=== PATIENT | male | born 1950 | race Caucasian/White ===

== ENCOUNTER 2018-11-09 13:40 | Day surgery (SDC) | payer MEDICARE, OTHER ==
[~2018-11-09] VITALS: Ht 193 cm; Wt 95.5 kg
[~2018-11-09 13:40] MED LIST: ALBU90I INH; ALBU90OI6 INH; ALPR.5 PO; AMIO200; AMIO200 PO; AMLO5; AMLO5 PO; ASPI325; ASPI325 PO; ATEN25 PO; ATEN50; ATOR10; ATOR40TA; ATOR40TA PO; ATOR80 PO; BISA5EC; CEFU500 PO; CLOP75; CLOP75 PO; Cardizem CD 12120 MG PO; Coumadin5 MG PO; DIGO.125; DIGO.25; DOCU100; DYAZIDE PO; EYE VITAMIN-MI1 EACH PO; EZET10; FENO145 PO; FENO160; FENOFIBRATE145 MG PO; FURO20 PO; GENPREOPSU; LEVO750 PO; LISI20 PO; LO-DOSE ASPIRIN81 MG PO; Lovenox100 MG/1 M SC; METO25 PO; METO50 PO; METO50ER PO; MULTI VITAMIN1 EACH PO; MULVITMIND; MULVITMIND PO; NAPR500 PO; PANT40 PO; POTCHL10ER PO; PRED10 PO; PRED20; Preservision A1 EACH PO; SOTO80; SOTO80 PO; SUCR1SU PO; TRIHYD253A PO; WARF2.5; WARF5; WARF5 PO; Zantac150 MG PO; [UNRECOGNIZED DRUG - OTHER]; [UNRECOGNIZED DRUG - OTHER]; [UNRECOGNIZED DRUG - OTHER]
== END 2018-11-09 15:49 | disposition home or self-care (01) ==
LOC: ORSCSDS 13:40
PROVIDERS: Internal Medicine Gastroenterology
PROC: 0DBK8ZX Excision of Ascending Colon, Via Natural or Artificial Opening Endoscopic, Diagnostic (ICD-10-PCS; principal; 2018-11-09 15:00)
PROC: 0DB58ZX Excision of Esophagus, Via Natural or Artificial Opening Endoscopic, Diagnostic (ICD-10-PCS; principal; 2018-11-09 15:00)
DX: Z12.11 Encounter for screening for malignant neoplasm of colon (principal); Z86.010 Personal history of colon polyps; D12.2 Benign neoplasm of ascending colon; K57.30 Diverticulosis of large intestine without perforation or abscess without bleeding; K22.70 Barrett's esophagus without dysplasia; K44.9 Diaphragmatic hernia without obstruction or gangrene; I48.91 Unspecified atrial fibrillation; Z79.01 Long term (current) use of anticoagulants; J44.9 Chronic obstructive pulmonary disease, unspecified; Z79.899 Other long term (current) drug therapy; F17.210 Nicotine dependence, cigarettes, uncomplicated
CPT/HCPCS: 88305; J2250; J2704; J7120

== ENCOUNTER 2021-01-06 07:32 | Day surgery (SDC) | payer MEDICARE, OTHER ==
[~2021-01-06] VITALS: Ht 193 cm; Wt 95.0 kg
[~2021-01-06 07:32] MED LIST changes: +BISA5EC PO; +Crestor40 MG PO; +FAMO40 PO; +LOVAZA PO; +METAMUCIL POWD575 GM PO
--- NOTE | 2021-01-06 14:52 | NUR ---
DR RHOADES BY TO DISCUSS PLAN OF CARE WITH PT, PT DRESSED, IV DC'D INTACT, R GROIN VENOUS ACCESS SITE STABLE. R RADIAL TR REMOVED, DRESSING IN PLACE, R WRIST SPLINT PLACED, PT DC'D BY WC BY THIS RN WITH DRIVING PT HOME
== END 2021-01-06 14:00 | disposition home or self-care (01) ==
LOC: MHTC 07:32
PROC: B2111ZZ Fluoroscopy of Multiple Coronary Arteries using Low Osmolar Contrast (ICD-10-PCS; principal; 2021-01-06)
PROC: 4A023N8 Measurement of Cardiac Sampling and Pressure, Bilateral, Percutaneous Approach (ICD-10-PCS; principal; 2021-01-06)
DX: I25.10 Atherosclerotic heart disease of native coronary artery without angina pectoris (principal); I27.20 Pulmonary hypertension, unspecified; I10 Essential (primary) hypertension; E78.00 Pure hypercholesterolemia, unspecified; I73.9 Peripheral vascular disease, unspecified; E78.5 Hyperlipidemia, unspecified; I48.91 Unspecified atrial fibrillation; J44.9 Chronic obstructive pulmonary disease, unspecified; I35.0 Nonrheumatic aortic (valve) stenosis; Z79.899 Other long term (current) drug therapy; Z95.2 Presence of prosthetic heart valve; Z91.013 Allergy to seafood
CPT/HCPCS: 76937; 93451; 93458; 93460; 99152; 99153; C1760; C1769; C1887; C1894; J0360; J2250; J3010; J7030; Q9967

== ENCOUNTER 2021-09-27 17:12 | Emergency (ER) | payer MEDICARE, OTHER ==
[~2021-09-27] VITALS: Ht 193 cm; Wt 89.4 kg
[2021-09-27 17:45] LABS: BASOPHILS ABSOLUTE AUTO 0.08 K/mm3 (0.00-0.23); BASOPHILS PERCENT AUTO 1 % (0-2); EOSINOPHILS ABSOLUTE AUTO 0.12 K/mm3 (0.00-0.68); EOSINOPHILS PERCENT AUTO 1 % (0-6); Hematocrit 40.5 % (37.0-53.0); Hemoglobin 13.3 g/dL (13.5-17.5); IMMATURE GRAN ABSOLUTE AUTO 0.05 K/mm3 (0.00-0.10); IMMATURE GRAN PERCENT AUTO 1 % (0-1); LYMPHOCYTES ABSOLUTE AUTO 0.77 K/mm3 (0.84-5.20); LYMPHOCYTES PERCENT AUTO 8 % (21-46); MONOCYTES ABSOLUTE AUTO 1.01 K/mm3 (0.16-1.47); MONOCYTES PERCENT AUTO 10 % (4-13); Mean Corpuscular HGB 29.9 pg (26.0-34.0); Mean Corpuscular HGB Conc 32.8 g/dL (31.5-36.5); Mean Corpuscular Volume 91 fL (80-100); Mean Platelet Volume 11.7 fL (9.1-12.4); NEUTROPHILS ABSOLUTE AUTO 8.16 K/mm3 (1.96-9.15); NEUTROPHILS PERCENT AUTO 80 % (41-73); Platelet Count 201 K/mm3 (150-400); RDW Coefficient Variation 14.5 % (11.7-14.2); RDW Standard Deviation 45.4 fL (35.1-46.3); Red Blood Cell Count 4.45 M/mm3 (4.30-5.90); White Blood Cell Count 10.19 K/mm3 (4.00-11.30)
[2021-09-27 18:07] LABS: Albumin, Blood 3.6 g/dL (3.4-5.0); Albumin/Globulin Ratio 0.9 (0.8-1.8); Bilirubin, Total 4.1 mg/dL (0.1-1.0); Bun/Creatinine Ratio 26.3 (12.0-20.0); Creatinine, Blood 2.85 mg/dL (0.60-1.20); Globulin, Blood 3.8 g/dL (2.2-4.0); Potassium, Blood 5.3 mmol/L (3.5-5.5); Total Protein, Blood 7.4 g/dL (6.4-8.2)
[2021-09-27] MEDS ORDERED: AMIODARONE PO (18:14)
[2021-09-27] MEDS ORDERED: CARVEDILOL3.125 MG PO (18:14)
[2021-09-27 21:35] LABS: Influenza A, PCR NEGATIVE (NEGATIVE); Influenza B, PCR NEGATIVE (NEGATIVE); Resp Syncytial Virus, PCR NEGATIVE (NEGATIVE); SARS-Cov-2 (COVID-19) PCR, MMC NEGATIVE (NEGATIVE)
== END 2021-09-27 22:10 | disposition short-term general hospital (02) ==
LOC: ER 17:12
PROVIDERS: Physician Assistant; Student in an Organized Health Care Education/Training Program
DX: I11.0 Hypertensive heart disease with heart failure (principal); I50.23 Acute on chronic systolic (congestive) heart failure; N17.9 Acute kidney failure, unspecified; K72.00 Acute and subacute hepatic failure without coma; E87.1 Hypo-osmolality and hyponatremia; E86.1 Hypovolemia; R57.0 Cardiogenic shock; I48.91 Unspecified atrial fibrillation; Z20.822 Contact with and (suspected) exposure to COVID-19; Z87.891 Personal history of nicotine dependence; Z79.01 Long term (current) use of anticoagulants; Z79.899 Other long term (current) drug therapy; Z91.013 Allergy to seafood
CPT/HCPCS: 0241U; 36415; 71045; 76705; 80053; 83605; 83690; 83880; 84484; 85025; 93005; 93010; J1250; J1940; J7060

== ENCOUNTER 2022-03-04 06:21 | Day surgery (SDC) | payer MEDICARE, OTHER ==
[~2022-03-04] VITALS: Ht 193 cm; Wt 91.5 kg
[~2022-03-04 06:21] MED LIST changes: +AMIODARONE PO; +Amlodipine Bes2.5 MG PO; +Aspir 8181 MG PO; +CARVEDILOL3.125 MG PO; +OMEGA-3 FISH O1 EAC6
[2022-03-04] MEDS ORDERED: ELIQUIS2.5 MG PO (06:44)
[2022-03-04] MEDS ORDERED: POTA10T PO (06:44)
--- NOTE | 2022-03-04 06:56 | NUR ---
03/04/22 0656 Nicole Saldana 0629 [facility] [id number]
== END 2022-03-04 08:07 | disposition home or self-care (01) ==
LOC: ORSCSDS 06:21
PROVIDERS: Ophthalmology
PROC: 08RJ3JZ Replacement of Right Lens with Synthetic Substitute, Percutaneous Approach (ICD-10-PCS; principal; 2022-03-04 07:30)
DX: H25.13 Age-related nuclear cataract, bilateral (principal); H52.201 Unspecified astigmatism, right eye; Z99.81 Dependence on supplemental oxygen; I10 Essential (primary) hypertension; E78.00 Pure hypercholesterolemia, unspecified; Z79.899 Other long term (current) drug therapy; Z79.82 Long term (current) use of aspirin; F17.210 Nicotine dependence, cigarettes, uncomplicated; J44.9 Chronic obstructive pulmonary disease, unspecified
CPT/HCPCS: J2001; J2250; J3010; J3301; J7040; V2632

== ENCOUNTER 2024-02-08 12:11 | Emergency (ER) | payer MEDICARE, OTHER ==
[~2024-02-08] VITALS: Ht 193 cm; Wt 89.8 kg
[~2024-02-08 12:11] MED LIST changes: +Amiodarone HCl200 MG PO; +ELIQUIS2.5 MG PO; +POTA10T PO
[2024-02-08 12:32] LABS: BASOPHILS ABSOLUTE AUTO 0.05 K/mm3 (0.00-0.23); BASOPHILS PERCENT AUTO 1 % (0-2); EOSINOPHILS ABSOLUTE AUTO 0.12 K/mm3 (0.00-0.68); EOSINOPHILS PERCENT AUTO 2 % (0-6); Hematocrit 38.8 % (37.0-53.0); IMMATURE GRAN ABSOLUTE AUTO 0.03 K/mm3 (0.00-0.10); IMMATURE GRAN PERCENT AUTO 0 % (0-1); LYMPHOCYTES ABSOLUTE AUTO 0.89 K/mm3 (0.84-5.20); LYMPHOCYTES PERCENT AUTO 13 % (21-46); MONOCYTES PERCENT AUTO 9 % (4-13); Mean Corpuscular HGB 33.4 pg (26.0-34.0); Mean Corpuscular HGB Conc 33.5 g/dL (31.5-36.5); Mean Corpuscular Volume 100 fL (80-100); Mean Platelet Volume 10.5 fL (9.1-12.4); NEUTROPHILS ABSOLUTE AUTO 5.17 K/mm3 (1.96-9.15); NEUTROPHILS PERCENT AUTO 76 % (41-73); Platelet Count 141 K/mm3 (150-400); RDW Coefficient Variation 14.5 % (11.7-14.2); RDW Standard Deviation 51.8 fL (35.1-46.3); Red Blood Cell Count 3.89 M/mm3 (4.30-5.90); White Blood Cell Count 6.86 K/mm3 (4.00-11.30)
[2024-02-08] MEDS ORDERED: Diphth,Pertuss(Acell),Tet Vac 0.5 ML VIAL IM ONE (12:40)
[2024-02-08] MEDS ORDERED: Morphine Sulfate 4 MG/1 ML Injection IV ONE (12:40)
[2024-02-08] MEDS ORDERED: NS 250 ML IV SCH (12:40)
[2024-02-08] MEDS ORDERED: Acetaminophen 500 MG Tab PO ONE (12:40)
[2024-02-08 12:51] LABS: Albumin, Blood 3.7 g/dL (3.4-5.0); Albumin/Globulin Ratio 0.9 (0.8-1.8); Bilirubin, Total 1.6 mg/dL (0.1-1.0); Bun/Creatinine Ratio 19.5 (12.0-20.0); Calcium, Blood 9.2 mg/dL (8.5-10.1); Creatinine, Blood 1.18 mg/dL (0.60-1.20); Globulin, Blood 4.1 g/dL (2.2-4.0); Magnesium, Blood 1.9 mg/dL (1.6-2.4); Potassium, Blood 4.4 mmol/L (3.5-5.5); Total Protein, Blood 7.8 g/dL (6.4-8.2)
[2024-02-08] MEDS ORDERED: Furosemide 10 MG/ML 10ML Vial IV ONE (14:45)
[2024-02-08] MEDS ORDERED: Morphine Sulfat15 MG PO (14:47)
[2024-02-08] MEDS ORDERED: PERIDEX15 ML MM (14:51)
[2024-02-08 15:15] VITALS: BP 136/50
== END 2024-02-08 15:40 | disposition left against medical advice (07) ==
LOC: ER 12:11
PROVIDERS: Student in an Organized Health Care Education/Training Program
DX: S06.9X9A Unspecified intracranial injury with loss of consciousness of unspecified duration, initial encounter (principal); S01.112A Laceration without foreign body of left eyelid and periocular area, initial encounter; S01.511A Laceration without foreign body of lip, initial encounter; S80.02XA Contusion of left knee, initial encounter; I50.22 Chronic systolic (congestive) heart failure; I11.9 Hypertensive heart disease without heart failure; I48.91 Unspecified atrial fibrillation; I35.0 Nonrheumatic aortic (valve) stenosis; Z95.2 Presence of prosthetic heart valve; R79.89 Other specified abnormal findings of blood chemistry; E78.5 Hyperlipidemia, unspecified; W18.30XA Fall on same level, unspecified, initial encounter; Z87.891 Personal history of nicotine dependence; Z79.899 Other long term (current) drug therapy; Z91.013 Allergy to seafood
CPT/HCPCS: 12011; 29125; 70450; 71046; 72125; 73130; 73562-LT; 80053; 83735; 83880; 84484; 85025; 90471; 90715; 93005; 93010; 96374-59; 96375-59; 99285-25; A9270; J1940; J2270; J7030

== ENCOUNTER 2024-06-03 18:24 | Inpatient (IN) | payer MEDICARE, OTHER ==
[~2024-06-03] VITALS: Ht 182.9 cm; Wt 85.4 kg
[~2024-06-03 18:24] MED LIST changes: +Morphine Sulfat15 MG PO; +PERIDEX15 ML MM
[2024-06-03 19:08] LABS: BASOPHILS ABSOLUTE AUTO 0.06 K/mm3 (0.00-0.23); BASOPHILS PERCENT AUTO 1 % (0-2); EOSINOPHILS ABSOLUTE AUTO 0.08 K/mm3 (0.00-0.68); EOSINOPHILS PERCENT AUTO 1 % (0-6); Hematocrit 41.7 % (37.0-53.0); Hemoglobin 13.4 g/dL (13.5-17.5); IMMATURE GRAN ABSOLUTE AUTO 0.04 K/mm3 (0.00-0.10); IMMATURE GRAN PERCENT AUTO 1 % (0-1); LYMPHOCYTES ABSOLUTE AUTO 0.64 K/mm3 (0.84-5.20); LYMPHOCYTES PERCENT AUTO 8 % (21-46); MONOCYTES ABSOLUTE AUTO 0.64 K/mm3 (0.16-1.47); MONOCYTES PERCENT AUTO 8 % (4-13); Mean Corpuscular HGB 30.8 pg (26.0-34.0); Mean Corpuscular HGB Conc 32.1 g/dL (31.5-36.5); Mean Corpuscular Volume 96 fL (80-100); Mean Platelet Volume 10.3 fL (9.1-12.4); NEUTROPHILS ABSOLUTE AUTO 6.17 K/mm3 (1.96-9.15); NEUTROPHILS PERCENT AUTO 81 % (41-73); Platelet Count 162 K/mm3 (150-400); RDW Coefficient Variation 15.2 % (11.7-14.2); Red Blood Cell Count 4.35 M/mm3 (4.30-5.90); White Blood Cell Count 7.63 K/mm3 (4.00-11.30)
[2024-06-03 19:22] LABS: Albumin, Blood 3.2 g/dL (3.4-5.0); Albumin/Globulin Ratio 0.7 (0.8-1.8); Bilirubin, Total 1.7 mg/dL (0.1-1.0); Bun/Creatinine Ratio 17.9 (12.0-20.0); Calcium, Blood 8.7 mg/dL (8.5-10.1); Creatinine, Blood 1.23 mg/dL (0.60-1.20); Globulin, Blood 4.3 g/dL (2.2-4.0); Total Protein, Blood 7.5 g/dL (6.4-8.2)
[2024-06-03] MEDS ORDERED: Bumetanide 0.25 MG/ML 10ML Vial IV ONE (20:40)
[2024-06-03] MEDS ORDERED: Ondansetron HCl 2 MG / ML 2ML Vial IV PRN (21:35)
[2024-06-03] MEDS ORDERED: ALPRAZolam 0.5 MG Tab PO PRN (21:35)
[2024-06-03] MEDS ORDERED: METO25ER PO (21:58)
[2024-06-03] MEDS ORDERED: ASPI81CH PO (21:58)
[2024-06-03] MEDS ORDERED: Metoprolol Tartrate 25 MG Tab PO SCH (22:00)
[2024-06-03] MEDS ORDERED: GuaiFENesin 600 MG TabCR PO SCH (22:00)
[2024-06-03] MEDS ORDERED: Apixaban 5 MG Tab PO SCH (22:00)
[2024-06-03 23:00] VITALS: BP 112/63
--- NOTE | 2024-06-03 23:00 | NUR ---
ASSUMPTION OF CARE/TRANSFER TO PCU PT TRANSFERED TO PCU VIA ER GURNEY, PT TRANSFERED TO PCU BED VIA SBA. PT ALERT AND ORIENTED X4, PT ANSWERS QUESTIONS APPROPRIATELY, FOLLOWS DIRECTION WHEN PROMPTED AND IS ABLE TO MAKE HIS NEEDS KNOWN. PT MOVES EXTREMITIES EQUALLY BILATERALLY. HR 70'S PACED, PT DENIES CP/PRESSURE, MAP >65. PT ON 4LPM ON ARRIVAL TO UNIT, OXYGEN SATURATION >95%. ABDOMEN ROUND, PT STATES NOT NORMAL FOR HIM. BOWEL TONES ACTIVE THROUGHOUT. PT USES URINAL TO VOID. PIV IN PLACE TO LAC SL. PT BLE EDEMATOUS. BED IN LOWEST POSITION, CALL LIGHT WITHIN REACH, PT FAMILY AT THE BEDSDIE. CARE CONTINUES.
[2024-06-03] MEDS ORDERED: Albuterol 2.5 MG/3 ML VIAL INH PRN (23:25)
[2024-06-03] MEDS ORDERED: FLU VACC TS2024-25(6MOS UP)/PF 45 MCG/0.5 ML SYRINGE IM ONE (23:30)
[2024-06-03 23:49] VITALS: BP 138/72
--- NOTE | 2024-06-04 00:37 | NUR ---
PT UPDATE DR. FLYNN TO BEDSIDE TO DISCUSS CODE STATUS WITH PT. PT REIDERATES THAT HE WOULD LIKE TO BE A DNR, ORDERS RECEIVED, ORDER UPDATED. CARE CONTINUES.
[2024-06-04 03:47] VITALS: BP 118/68
[2024-06-04 04:11] LABS: Bun/Creatinine Ratio 20.7 (12.0-20.0); Calcium, Blood 9.1 mg/dL (8.5-10.1); Creatinine, Blood 1.16 mg/dL (0.60-1.20); Magnesium, Blood 2.4 mg/dL (1.6-2.4); Potassium, Blood 4.3 mmol/L (3.5-5.5)
--- NOTE | 2024-06-04 05:39 | NUR ---
SHIFT SUMMARY PT CONTINUES TO REST IN BED, SLEEPING BUT AROUSABLE. PT ANSWERS QUESTIONS APPROPRIATELY, FOLLOWS DIRECTION WHEN PROMPTED AND IS ABLE TO MAKE HIS NEEDS KNOWN. PT USES CALL LIGHT APPROPRATELY. PT MOVES EXTREMITIES EQUALLY BILATERALLY. PT AMBULATES IN THE ROOM WITH NURSE ASSIST FOR HELP WITH CORD MANAGEMENT. HR 70'S PACED, PT DENIES CP/PRESSURE THIS SHIFT, MAP >65. PT ON 4LPM VIA NC, OXYGEN SATURATION >94%. ABDOMEN ROUND, PT STATES NOT HIS NORMAL. BOWEL TONES ACTIVE THROUGHOUT. PT UP TO BEDSIDE TOILET TO VOID, ALSO USES URINAL AT THE SIDE OF THE BED. PIV IN PLACE TO LAC SL. BED IN LOWEST POSITION, CALL LIGHT WITHIN REACH, CARE CONTINUES.
[2024-06-04 08:07] VITALS: BP 127/64
[2024-06-04] MEDS ORDERED: Polyethylene Glycol 3350 17 gm PO PRN (11:05)
[2024-06-04 15:12] VITALS: BP 83/68
[2024-06-04] MEDS ORDERED: Benzonatate 100 MG Cap PO PRN (16:15)
[2024-06-04 16:20] VITALS: BP 116/68
--- NOTE | 2024-06-04 16:25 | NUR ---
SHIFT SUMMARY: PT ALERT AND ORIENTED X4, ABLE TO FOLLOW COMMANDS AND MAKE NEEDS KNOWN. STRENGTH EQUAL BILATERALLY. BP STABLE, HR PACED 70'S, AFEBRILE, SPO2 >92% ON 2L NC. PT RA AT BASELINE. LUNG SOUNDS DIM IN BASES, RESPIRATIONS EVEN AND UNLABORED AT REST. PT WITH NON PRODUCTIVE COUGH. ABD SOFT, MILDLY DISTENDED, BOWEL SOUNDS +. PT WITH +2 EDEMA IN BLE. PULSES STRONG AND EQUAL THROUGHOUT. PT DIURESING WELL, APPROX 900ML OF URINIARY OUTOUT. NO BM. ABLE TO USE URNIAL IND AT BEDSIDE. FAMILY AT BEDSIDE THIS AFTERNOON, UPDATED ON PT PLAN OF CARE. PT NOW MEDICAL WITH TELE STATUS. BED IN LOW, CALL LIGHT IN REACH, WILL REPORT TO ONCOMING RN.
[2024-06-04] MEDS ORDERED: Furosemide 10 MG/ML 4ML Vial IV SCH ×2 (18:00)
[2024-06-04 19:44] VITALS: BP 112/69
--- NOTE | 2024-06-04 20:31 | NUR ---
ASSUMPTION OF CARE AFTER RECEIVING REPORT FROM ASHLEY RN, THIS RN ASSUMED CARE AT APPROX 1915. PATIENT ALERT AND ORIENTED X4. COMMUNICATES NEEDS EFFECTIVELY. MOVES EXTREMITIES EQUALLY. PERRLA. TELEMETRY SHOWING PACED 70s. BP STABLE, SBP 110s. MAP >65. +2 EDEMA TO BLE. ON 2L VIA NC, SATs >90%. OCCASIONAL DRY, NONPRODUCTIVE COUGH. USES URINAL INDEPENDENTLY AT BEDSIDE. CALL LIGHT IN REACH.
[2024-06-04] MEDS ORDERED: Docusate Sodium/Senna 1 Tab PO SCH (21:00)
[2024-06-05 02:48] VITALS: BP 120/63
[2024-06-05 03:57] LABS: Hematocrit 39.4 % (37.0-53.0); Hemoglobin 13.1 g/dL (13.5-17.5); Mean Corpuscular HGB 31.2 pg (26.0-34.0); Mean Corpuscular HGB Conc 33.2 g/dL (31.5-36.5); Mean Corpuscular Volume 94 fL (80-100); Mean Platelet Volume 10.5 fL (9.1-12.4); Platelet Count 151 K/mm3 (150-400); RDW Standard Deviation 49.1 fL (35.1-46.3); White Blood Cell Count 8.53 K/mm3 (4.00-11.30)
[2024-06-05 04:19] LABS: Albumin, Blood 3.2 g/dL (3.4-5.0); Anion Gap 10 mmol/L (3-11); Blood Urea Nitrogen 26 mg/dL (8-24); Bun/Creatinine Ratio 21.8 (12.0-20.0); CO2, Blood 28 mmol/L (21-32); Calcium, Blood 8.8 mg/dL (8.5-10.1); Chloride, Blood 96 mmol/L (98-108); Creatinine, Blood 1.19 mg/dL (0.60-1.20); Glomerular Filtration Rate 63 (60-); Glucose, Blood 121 mg/dL (70-99); Magnesium, Blood 2.2 mg/dL (1.6-2.4); Phosphorus, Blood 3.3 mg/dL (2.5-4.9); Potassium, Blood 3.6 mmol/L (3.5-5.5); Sodium, Blood 130 mmol/L (136-145)
--- NOTE | 2024-06-05 05:27 | NUR ---
SHIFT SUMMARY NO ACUTE EVENTS SINCE ASSUMPTION OF CARE NOTE. PATIENT SLEPT OR RESTED QUIETLY THROUGHOUT NIGHT. AFEBRILE. DENIES PAIN. TELEMETRY SHOWING PACED 70s. BP STABLE, SBP 110s-120s. MAP >65. DENIES CHEST PAIN, PRESSURE. REMAINS ON 2L VIA NC, SATs >90%. BASELINE USE OF 2L WITH SLEEP. INDEPENDENT WITH ADLs. REPOSITIONS HIMSELF IN BED. CALL LIGHT IN REACH. WILL CONTINUE TO MONITOR AND REPORT TO ONCOMING RN.
[2024-06-05 08:04] VITALS: BP 138/60
[2024-06-05] MEDS ORDERED: Cholecalciferol 1000 Unit Tablet (=25MCG) PO SCH (09:00)
[2024-06-05] MEDS ORDERED: ALPR1 PO (09:39)
[2024-06-05] MEDS ORDERED: Metolazone 5 MG Tab PO ONE (10:20)
[2024-06-05] MEDS ORDERED: Norco 5-325 Ta1 EACH PO (10:43)
[2024-06-05] MEDS ORDERED: ELIQUIS5 M2 PO (10:44)
[2024-06-05] MEDS ORDERED: BISA5EC PO (10:45)
[2024-06-05] MEDS ORDERED: Bumetanide 0.25 MG/ML 10ML Vial IV ONE (10:45)
[2024-06-05] MEDS ORDERED: FAMO40 PO (10:46)
[2024-06-05] MEDS ORDERED: FURO80 PO (10:46)
[2024-06-05] MEDS ORDERED: LISI5 PO (10:47)
[2024-06-05] MEDS ORDERED: MULVITA PO (10:47)
[2024-06-05] MEDS ORDERED: POTCHL20ER PO (10:48)
[2024-06-05] MEDS ORDERED: PRESERVISION A1 EAC1 PO (10:49)
[2024-06-05] MEDS ORDERED: ROSUVASTATIN CA20 MG PO (10:50)
[2024-06-05 11:29] VITALS: BP 114/61
[2024-06-05 16:15] VITALS: BP 122/61
[2024-06-05] MEDS ORDERED: Bumetanide 0.25 MG/ML 10ML Vial IV SCH (18:00)
[2024-06-05] MEDS ORDERED: Potassium Chloride 20 MEQ TabCR PO ONE (18:00)
--- NOTE | 2024-06-05 18:12 | NUR ---
END OF SHIFT SUMMARY: PATIENT IS MEDICAL WITH TELE STATUS PT IS ALERT AND ORIENTED X 4 AND ACTIVE IN HIS CARE. IS SATTING >92% ON 2 LITERS VIA NASAL CANNULA WHICH IS HIS BASELINE. IS ON TELE SHOWING PACED BEAT WITH RATE IN 70'S. CARDIOLOGY CONSULT WAS CALLED TODAY AND MEDICATIONS WERE CHANGED. PATIENT IS A STAND BY ASSIST TO MANAGE LINES/CHORDS. A MALEPUREWICK WAS PLACED TODAY PATIENTS BUMEX WAS INCREASED AND NEEDED TO USE THE URINAL MORE OFTEN. PT REPORTED HIS HANDS CRAMPING AND SLIGHT TREMORS, A CALL WAS PLACED TO DOCTOR MOCK AND HE ORDERED POTASSIUM TO BE GIVEN AND SOME MORNING LABS WERE ADDED. PATIENTS FAMILY WAS IN ROOM THROUGHOUT SHIFT AND WAS ABLE TO REST TODAY. WILL REPORT TO ONCOMING TALEND ETL DEVELOPER RN.
[2024-06-05 19:20] VITALS: BP 111/62
--- NOTE | 2024-06-05 21:43 | NUR ---
ASSUMPTION OF CARE AFTER RECEIVING REPORT FROM ADRIANNA, THIS RN ASSUMED CARE AT APPROX 1915. PATIENT ALERT AND ORIENTED X4. SLEEPING, EASILY AROUSABLE WITH VERBAL STIMULI. INDEPENDENT WITH ADLs. MOVES ALL EXTREMITIES EQUALLY. SBA FOR LINE, DEVICE MANAGEMENT WITH MOBILITY. TELEMETRY SHOWING PACED 70s. BP STABLE, SBP 110s. MAP >65. +2 EDEMA TO BLE, ABDOMEN. ON BASELINE 2L VIA NC, SATs >90%. RR EVEN, UNLABORED. MALE PW IN PLACE FOR URGENCY, ACCURATE I/Os WITH DIURESIS. CALL LIGHT IN REACH.
[2024-06-06 02:09] VITALS: BP 115/65
[2024-06-06 04:07] LABS: Hematocrit 36.8 % (37.0-53.0); Hemoglobin 12.9 g/dL (13.5-17.5); Mean Corpuscular HGB 32.6 pg (26.0-34.0); Mean Corpuscular HGB Conc 35.1 g/dL (31.5-36.5); Mean Corpuscular Volume 93 fL (80-100); Mean Platelet Volume 10.5 fL (9.1-12.4); Platelet Count 149 K/mm3 (150-400); RDW Coefficient Variation 15.8 % (11.7-14.2); RDW Standard Deviation 49.1 fL (35.1-46.3); Red Blood Cell Count 3.96 M/mm3 (4.30-5.90); White Blood Cell Count 9.12 K/mm3 (4.00-11.30)
[2024-06-06 04:25] LABS: Albumin, Blood 3.1 g/dL (3.4-5.0); Anion Gap 12 mmol/L (3-11); Blood Urea Nitrogen 24 mg/dL (8-24); Bun/Creatinine Ratio 22.2 (12.0-20.0); CO2, Blood 33 mmol/L (21-32); Chloride, Blood 88 mmol/L (98-108); Creatinine, Blood 1.08 mg/dL (0.60-1.20); Glomerular Filtration Rate 71 (60-); Glucose, Blood 122 mg/dL (70-99); Magnesium, Blood 2.1 mg/dL (1.6-2.4); Phosphorus, Blood 2.8 mg/dL (2.5-4.9); Potassium, Blood 2.5 mmol/L (3.5-5.5); Sodium, Blood 130 mmol/L (136-145)
[2024-06-06] MEDS ORDERED: Potassium Chloride 20 MEQ TabCR PO ONE ×2 (04:35→16:00)
[2024-06-06] MEDS ORDERED: Potassium Chl 20MEQ/Water100ML 100 ML IV SCH (04:35)
[2024-06-06] MEDS ORDERED: NS 250 ML IV PRN (04:35)
--- NOTE | 2024-06-06 04:35 | NUR ---
PATIENTs POTASSIUM 2.5 THIS MORNING. MD SUNSHINE ROUNDING IN UNIT. RECEIVED ORDER FOR 40 MEQ PO POTASSIUM CHLORIDE AND 40 MEQ IV POTASSIUM CHLORIDE. WILL ADMINISTER PER EMAR.
--- NOTE | 2024-06-06 05:58 | NUR ---
SHIFT SUMMARY NO ACUTE EVENTS SINCE ASSUMPTION OF CARE NOTE. PATIENT SLEPT OR RESTED QUIETLY THROUGHOUT. EASILY AROUSABLE WITH VERBAL STIMULI. TELEMETRY SHOWING PACED 70s. BP STABLE, SBP 110s-120s. MAP >65. DENIES CHEST PAIN, PRESSURE. DIURESING WELL THROUGHOUT NIGHT - MALE PUREWICK REMAINS IN PLACE. ON 2-4L VIA NC, SATs >90%. REPOSITIONING HIMSELF INDEPENDENTLY IN BED. CALL LIGHT IN REACH. IV POTASSIUM CHLORIDE INFUSING PER EMAR. WILL CONTINUE TO MONITOR AND REPORT TO ONCOMING RN.
--- NOTE | 2024-06-06 07:26 | NUR ---
ASSUMING CARE ASSUMING CARE AT 0715, BEDSIDE SHIFT REPORT WAS DONE. PATIENT RECIVING POTASSIUM IV, SITE ASSESSED AND WITHIN NORMAL LIMIT, FREE OF REDNESS OR SWELLING. PATIENT IS LAYING IN BED WITH THE CALL IN REACH.
[2024-06-06 07:49] VITALS: BP 113/60
[2024-06-06] MEDS ORDERED: HYDROcodone 5-APAP 325 TAB PO PRN (08:00)
[2024-06-06] MEDS ORDERED: Metoprolol Tartrate 25 MG Tab PO SCH (09:00)
[2024-06-06 12:22] LABS: Bun/Creatinine Ratio 22.3 (12.0-20.0); Calcium, Blood 9.5 mg/dL (8.5-10.1); Creatinine, Blood 1.03 mg/dL (0.60-1.20); Potassium, Blood 3.1 mmol/L (3.5-5.5)
[2024-06-06] MEDS ORDERED: Metolazone 2.5 MG Tab PO ONE (15:30)
[2024-06-06] MEDS ORDERED: Bumetanide 0.25 MG/ML 10ML Vial IV ONE (16:00)
[2024-06-06 16:18] VITALS: BP 116/61
--- NOTE | 2024-06-06 17:50 | NUR ---
SHIFT SUMMARY PATIENT IS A+O X4, MOVES ALL EXTERMITIES IN BED, ABLE TO REPOSTION SELF. MAKES NEEDS KNOWN. SBA ASSIT TO BATHROOM FOR BOWEL MOVEMENT. USING URINAL IN BED INDEPENTLY. PATIENT IS ON 2 LITERS NC SATURATING ABOVE 95%. DR. MEDRANO ROUNDED ON PATIENT WANTS TO CONTINUE TO DIURESING PATIENT, REPEAT BNP ORDERED FOR TOMORROW AM. CALL LIGHT IN REACH OF PATIENT, WILL CONTINUE TO TREAT UNTIL CHNAGE OF SHIFT.
[2024-06-06 19:44] VITALS: BP 111/52
--- NOTE | 2024-06-06 21:43 | NUR ---
ASSUMPTION OF CARE AFTER RECEIVING REPORT FROM ROSE RN, THIS RN ASSUMED CARE AT APPROX 1915. PATIENT ALERT AND ORIENTED X4. COMMUNICATING NEEDS EFFECTIVELY. AFEBRILE. RECEIVED HOME DOSE OF NORCO FOR CHRONIC LOWER BACK PAIN PRIOR TO ASSUMPTION OF CARE - REPORTS IMPROVEMENT IN PAIN 08/11. TELEMETRY SHOWING PACED 70s. BP SOFT, SBP 110s. MAP >65. DENIES CHEST PAIN, PRESSURE. EDEMA TO BLE, ABD IMPROVING WITH DIURESIS - +1 TO BLE, ABD. ON BASELINE 2L VIA NC, SATs >90%. RR EVEN, UNLABORED. OCCASIONAL DRY, HACKING COUGH. HOME DOSE OF XANAX ADMINISTERED PER EMAR AT PATIENT REQUEST TO HELP WITH SLEEP. PATIENT INDEPENDENT WITH ADLs. SBA WITH MOBILITY PRN. CALL LIGHT IN REACH.
[2024-06-07] VITALS (8 sets, daily range): BP systolic 113–137; BP diastolic 44–62
[2024-06-07 04:06] LABS: BASOPHILS ABSOLUTE AUTO 0.04 K/mm3 (0.00-0.23); BASOPHILS PERCENT AUTO 1 % (0-2); EOSINOPHILS ABSOLUTE AUTO 0.09 K/mm3 (0.00-0.68); EOSINOPHILS PERCENT AUTO 1 % (0-6); Hematocrit 41.3 % (37.0-53.0); Hemoglobin 13.9 g/dL (13.5-17.5); IMMATURE GRAN ABSOLUTE AUTO 0.04 K/mm3 (0.00-0.10); IMMATURE GRAN PERCENT AUTO 1 % (0-1); LYMPHOCYTES ABSOLUTE AUTO 0.65 K/mm3 (0.84-5.20); LYMPHOCYTES PERCENT AUTO 9 % (21-46); MONOCYTES ABSOLUTE AUTO 0.59 K/mm3 (0.16-1.47); MONOCYTES PERCENT AUTO 8 % (4-13); Mean Corpuscular HGB 31.7 pg (26.0-34.0); Mean Corpuscular HGB Conc 33.7 g/dL (31.5-36.5); Mean Corpuscular Volume 94 fL (80-100); NEUTROPHILS ABSOLUTE AUTO 6.21 K/mm3 (1.96-9.15); NEUTROPHILS PERCENT AUTO 82 % (41-73); Platelet Count 158 K/mm3 (150-400); RDW Coefficient Variation 15.9 % (11.7-14.2); RDW Standard Deviation 49.6 fL (35.1-46.3); Red Blood Cell Count 4.39 M/mm3 (4.30-5.90); White Blood Cell Count 7.62 K/mm3 (4.00-11.30)
[2024-06-07 04:23] LABS: Magnesium, Blood 1.9 mg/dL (1.6-2.4)
[2024-06-07 04:24] LABS: Albumin, Blood 3.3 g/dL (3.4-5.0); Albumin/Globulin Ratio 0.8 (0.8-1.8); Bilirubin, Total 2.9 mg/dL (0.1-1.0); Bun/Creatinine Ratio 25.9 (12.0-20.0); Calcium, Blood 9.7 mg/dL (8.5-10.1); Creatinine, Blood 1.08 mg/dL (0.60-1.20); Globulin, Blood 4.4 g/dL (2.2-4.0); Phosphorus, Blood 3.3 mg/dL (2.5-4.9); Potassium, Blood 2.9 mmol/L (3.5-5.5); Total Protein, Blood 7.7 g/dL (6.4-8.2)
[2024-06-07] MEDS ORDERED: Potassium Chloride 10 Meq Tablet SA PO ONE (05:00)
[2024-06-07] MEDS ORDERED: Potassium Chl 20MEQ/Water100ML 100 ML IV SCH (05:05)
--- NOTE | 2024-06-07 05:36 | NUR ---
SHIFT SUMMARY NO ACUTE EVENTS SINCE ASSUMPTION OF CARE NOTE. PATIENT SLEPT OR RESTED QUIETLY THROUGHOUT NIGHT, EASILY AROUSABLE WITH VERBAL STIMULI. MANAGING CHRONIC LOWER BACK PAIN PER EMAR. TELEMETRY SHOWING PACED 70s. BP STABLE, SBP 110s-130s. MAP >65. DENIES CHEST PAIN, PRESSURE. POTASSIUM 2.9 THIS MORNING - MD SUNSHINE CONTACTED. ORDERED PO 40 MEQ POTASSIUM ADMINISTERED PER EMAR. FIRST BAG OF 20 MEQ IV POTASSIUM INFUSING. REMAINS ON 2L VIA NC, SATs >90%. INDEPENDENT WITH ADLs. URINAL AT BEDSIDE - VOIDING. NO BM THIS SHIFT. CALL LIGHT IN REACH. WILL CONTINUE TO MONITOR AND REPORT TO ONCOMING RN.
[2024-06-07] MEDS ORDERED: Metolazone 5 MG Tab PO ONE (08:10)
[2024-06-07] MEDS ORDERED: Potassium Chloride 20 MEQ TabCR PO ONE (08:10)
[2024-06-07] MEDS ORDERED: Bumetanide 0.25 MG/ML 10ML Vial IV ONE (08:10)
[2024-06-07] MEDS ORDERED: Metoprolol Succinate 25 MG TABCR PO SCH (09:00)
[2024-06-07] MEDS ORDERED: Aspirin 81 MG Chew PO SCH (09:00)
[2024-06-07 11:24] LABS: Calcium, Blood 9.3 mg/dL (8.5-10.1); Creatinine, Blood 1.04 mg/dL (0.60-1.20)
--- NOTE | 2024-06-07 11:39 | NUR ---
PT'S AT THE BEDSIDE AND UPDATES ON CARE.
--- NOTE | 2024-06-07 18:05 | NUR ---
SHIFT SUMMARY THE PT IS A&OX4, CALLS APPROPRAITELY, AND MAKES HIS NEEDS KNOW. HE IS A 1P SBA FOR LINE MANAGEMENT. HE HAS BEEN ON HIS BL 2L NC W/ SP02 >90%. HE HAD ONE EPISODE OF SOB WHEN HE WAS C/O BACK PAIN. NO CHANGES IN LUNG SOUNDS OR SATURATION. AFTER PAIN MEDICATIONS AND A BREATHING TREATMENT THE PT STATED THE SOB RESOLVED. ON TELE THE PT HAS BEEN VPACED 60'S-70'S. BP SABLE. HE HAS BEEN USING THE URINAL IND IN THE BED AND HAS BEEN CALLING APPROPRAITELY. HIS CAME TO BEDSIDE AND HAS BEEN UPDATED ON CARE. SEE NOTES FOR ANY UPDATES.
--- NOTE | 2024-06-07 21:09 | NUR ---
ASSUMPTION OF CARE NOTE. PT AOX4, PLEASANT, COOPERATIVE WITH CARE, CALLS APPROPRIATELY, ABLE TO MAKE NEEDS KNOWN. VITALS STABLE. 2100 MEDICATIONS ADMINISTERED SLIGHTLY EARLY PER REQUEST SO THAT HE CAN SLEEP. PAIN WELL MANAGED VIA EMAR. INDEPENDENT WITH URINAL, STANDBY ASSIST TO BSC. CALLS APPROPRIATELY FOR ASSISTANCE. RUNNING VPACED ON TELE. MAINTAINING ADEQUATE SATURATION ON 2 L O2 VIA NC WHICH IS PT BASELINE PER REPORT. BED LOCKED IN LOWEST POSITION. CALL LIGHT LEFT WITHIN REACH. CONTINUING TO MONITOR.
[2024-06-08] VITALS (9 sets, daily range): BP systolic 88–112; BP diastolic 45–61
--- NOTE | 2024-06-08 01:23 | NUR ---
0000 NOTE. PT SLEEPING AT TIME OF ENTERING ROOM FOR VITALS. REMAINS AOX4, PLEASANT, COOPERATIVE. MAINTAINING ADEQUATE SATURATION ON 2 L O2 VIA NC. EMPTIED URINAL. PT DENIES FURTHER NEEDS. CONTINUING TO MONITOR.
[2024-06-08 04:21] LABS: Hematocrit 43.6 % (37.0-53.0); Hemoglobin 14.8 g/dL (13.5-17.5)
--- NOTE | 2024-06-08 04:49 | NUR ---
shift summary. shift has been unremarkable. pt condition unchanged throughout shift, see previous notes for details. bed locked in lowest position. call light left within reach. continuing to monitor.
[2024-06-08 05:32] LABS: Bun/Creatinine Ratio 28.2 (12.0-20.0); Calcium, Blood 9.8 mg/dL (8.5-10.1); Creatinine, Blood 1.03 mg/dL (0.60-1.20); Magnesium, Blood 1.8 mg/dL (1.6-2.4); Phosphorus, Blood 3.6 mg/dL (2.5-4.9); Potassium, Blood 3.2 mmol/L (3.5-5.5)
[2024-06-08] MEDS ORDERED: Potassium Chloride 20 MEQ TabCR PO SCH ×2 (08:11→08:30)
[2024-06-08] MEDS ORDERED: Metolazone 5 MG Tab PO SCH (08:30)
[2024-06-08] MEDS ORDERED: Bumetanide 1 MG Tab PO SCH (09:00)
[2024-06-08] MEDS ORDERED: Bumetanide 0.25 MG/ML 4ML ViaL IV SCH (09:00)
[2024-06-08] MEDS ORDERED: Acetaminophen 325 MG TABLET PO PRN (11:15)
[2024-06-08 13:19] LABS: Bun/Creatinine Ratio 33.4 (12.0-20.0); Calcium, Blood 9.8 mg/dL (8.5-10.1); Creatinine, Blood 0.99 mg/dL (0.60-1.20); Potassium, Blood 2.7 mmol/L (3.5-5.5)
--- NOTE | 2024-06-08 14:52 | NUR ---
I CALLED DR. TRUONG ABOUT THE PT'S 1158 LABS: K 2.7. SHE STATED SHE IS WORKING ON IT RIGHT NOW. SEE NOTES FOR ANY UPDATES.
[2024-06-08] MEDS ORDERED: Potassium Chloride 20 MEQ TabCR PO ONE ×2 (15:00→22:50)
[2024-06-08] MEDS ORDERED: Potassium Chl 10MEQ/Water100ML 100 ML IV ONE (15:00)
--- NOTE | 2024-06-08 15:19 | NUR ---
DR. TRUONG CALLED ABOUT SYMPTOMATIC HYPOTENSION. SHE IS GOING TO BE PUTTING IN SOME FLUIDS. ALSO, THE PT STATED IT IS OKAY TO GIVE THE 1700 DOSE OF KCL W/ NOW. SEE NOTES FOR UPDATES .
[2024-06-08] MEDS ORDERED: NS 250 ML IV SCH (15:25)
--- NOTE | 2024-06-08 16:58 | NUR ---
SHIFT SUMMARY PT IS A&OX4, CALLS APPROPRIATELY, AND CAN MAKE HIS NEEDS KNOWN. HE HAD A SOFT BLOOD PRESSURE THIS LATE AFTERNOON AND DR. TRUONG ORDERED 250CC'S NS @ 75ML/HR. HE WAS CHANGED BACK TO PCU STATUS FOR CLOSER OBSERVATION. WHEN THE PT'S BP WAS SOFT HE DID BECOME LIGHT HEADED AND DIZZY WHEN SITTING UP IN BED. SINCE STARTING THE FLUIDS HIS BP HAS IMPROVED. ON TELE THE PT HAS BEEN VPACED 70'S. HE DENIES ANY ANGINA OR CHEST PRESSURE. HE HAS BEEN USING THE URINAL IND IN THE ROOM, AND HAS NOT HAD A BOWEL MOVMENT TODAY. HIS CAME TO BEDSIDE AND HAS BEEN UPDATES ON CARE. SEE NOTES FOR ANY UPDATES.
--- NOTE | 2024-06-08 18:00 | NUR ---
ABOUT 1740 THE PT STARTED C/O SOB ON 2L NC. HIS SP02 WAS IN THE 80'S AND TOUCHED DOWN TO 79%. HE OXYGEN WAS TURNED UP 6L NC AND HE WAS COACHED WITH DEEP BREATHING. WHEN REASSESSING HIS LUNG SOUND HE HAD COARSE CRACKLES IN HIS LEFT LUNG. HE WAS ABLE TO RECOVER AND IS BACK ON 2LNC. RT GIVING THE PT A BREATHING TREATMENT. THE PT IS CURRENTLY RECIEVING A SLOW 250CC BOLUS D/T HYPOTENSION. DR. TRUONG WAS CALLED AND UPDATED. SHE ORDERED A BNP AND STAT CHEST XRAY. LAB IN THE ROOM AT THIS TIME. 1804. SEE NOTES FOR UPDATES.
--- NOTE | 2024-06-08 18:26 | NUR ---
PT HAD A SIX BEAT RUN OF VTACH, PT ASYMPTOMATIC. THIS WAS DISCUSSED WITH PAYROLL SUPERVISOR GABE.
[2024-06-08 21:00] LABS: Albumin, Blood 3.1 g/dL (3.4-5.0); Anion Gap 9 mmol/L (3-11); Blood Urea Nitrogen 38 mg/dL (8-24); Bun/Creatinine Ratio 32.8 (12.0-20.0); CO2, Blood 41 mmol/L (21-32); Calcium, Blood 9.1 mg/dL (8.5-10.1); Chloride, Blood 79 mmol/L (98-108); Creatinine, Blood 1.16 mg/dL (0.60-1.20); Glomerular Filtration Rate 65 (60-); Glucose, Blood 196 mg/dL (70-99); Phosphorus, Blood 2.8 mg/dL (2.5-4.9); Potassium, Blood 3.1 mmol/L (3.5-5.5); Sodium, Blood 126 mmol/L (136-145)
--- NOTE | 2024-06-09 01:09 | NUR ---
LATE NOTE. PT POTASSIUM WAS LOW ON LABS THIS EVENING. SPOKE WITH DR. SANTANA WHO ORDERED ORAL REPLACEMENT. ADMINISTERED. WAS SLEEPING AT TIME OF ENTERING ROOM FOR 0000 VITALS. NO PAIN REPORTED. BP REMAINS SOFT BUT STABLE. NO EPISODES OF VTACH THUS FAR THIS SHIFT. BED LOCKED IN LOWEST POSITION. CALL LIGHT LEFT WITHIN REACH. CONTINUING TO MONITOR.
[2024-06-09 02:09] VITALS: BP 112/57
[2024-06-09 03:59] VITALS: BP 113/61
--- NOTE | 2024-06-09 04:24 | NUR ---
SHIFT SUMMARY. SHIFT HAS BEEN UNREMARKABLE. PT AOX4, PLEASANT, COOPERATIVE, ABLE TO MAKE NEEDS KNOWN. HAS BEEN ABLE TO REST COMFORTABLY THROUGHOUT MOST OF SHIFT. PAIN ADEQUATELY MANAGED VIA EMAR. BP HAS BEEN SOFT AT TIMES BUT HAS BEEN MOSTLY STABLE, MOST RECENT MAP WAS 77 WITH SBP OF 113. CONTINUES TO RUN V PACED ON TELE. CONTINUES TO MAINTAIN ADEQUATE SATURATION ON 2 L O2 VIA NC. CONTINUES TO BE INDEPENDENT WITH URINAL AND REQUESTS ASSISTANCE APPROPRIATELY FOR HELP. AWAITING LAB RESULTS TO COME BACK FROM MORNING LABS POST ORAL POTASSIUM REPLACEMENT LAST NIGHT. SHIFT OTHERWISE UNREMARKABLE. BED LOCKED IN LOWEST POSITION. CALL LIGHT LEFT WITHIN REACH. CONTINUING TO MONITOR.
[2024-06-09 04:25] LABS: Hematocrit 40.8 % (37.0-53.0); Hemoglobin 13.7 g/dL (13.5-17.5)
[2024-06-09 04:54] LABS: Bun/Creatinine Ratio 36.4 (12.0-20.0); Calcium, Blood 9.6 mg/dL (8.5-10.1); Creatinine, Blood 1.07 mg/dL (0.60-1.20); Potassium, Blood 3.2 mmol/L (3.5-5.5)
[2024-06-09 07:37] VITALS: BP 118/44
[2024-06-09] MEDS ORDERED: Potassium Chloride 20 MEQ TabCR PO ONE (09:00)
--- NOTE | 2024-06-09 09:09 | NUR ---
am note this rn assumed care at 0700. vital signs stable. spo2 >90% on 2l nc which is patient baseline. tele sinus rhythm. patient is alert and oriented x4. neuro is intact. patient is able to make needs known and uses call light appropriately. see shift assessment for further detials. md ck in to see patient and encouraged movement and possible discharge today. patient agreed. will wait to see md meza when md rounds. plan reamins up to date
--- NOTE | 2024-06-09 09:36 | NUR ---
UPDATE md meza in to see patient while patient sitting in the hallway from walk. plan for patient to go home this afternoon. patient agrees to this plan.
[2024-06-09 11:47] VITALS: BP 110/60
[2024-06-09] MEDS ORDERED: BUME2 PO (12:08)
[2024-06-09] MEDS ORDERED: JARDIANCE10 MG PO (12:09)
--- NOTE | 2024-06-09 14:07 | NUR ---
discharge this rn went over discharge education, follows, and medication changes with the patient and patients . patient verbalized understanding of education, follow ups and medication changes. meds faxed to [facility]. patient left with all belongings and in no distress.
== END 2024-06-09 13:42 | disposition home or self-care (01) | DRG 291 ==
LOC: ER 18:24 → PCU 21:31
PROVIDERS: Emergency Medicine; Family Medicine; Hospitalist; Internal Medicine; Nurse Practitioner Acute Care; ADMIT Internal Medicine
DX: I11.0 Hypertensive heart disease with heart failure (principal); I50.43 Acute on chronic combined systolic (congestive) and diastolic (congestive) heart failure; J96.21 Acute and chronic respiratory failure with hypoxia; E87.1 Hypo-osmolality and hyponatremia; I48.92 Unspecified atrial flutter; Z66 Do not resuscitate; I25.10 Atherosclerotic heart disease of native coronary artery without angina pectoris; I48.91 Unspecified atrial fibrillation; I73.9 Peripheral vascular disease, unspecified; E66.01 Morbid (severe) obesity due to excess calories; E78.5 Hyperlipidemia, unspecified; J44.9 Chronic obstructive pulmonary disease, unspecified; F17.210 Nicotine dependence, cigarettes, uncomplicated; F10.10 Alcohol abuse, uncomplicated; E86.1 Hypovolemia; I42.0 Dilated cardiomyopathy; E87.6 Hypokalemia; I27.29 Other secondary pulmonary hypertension; K22.70 Barrett's esophagus without dysplasia; I70.8 Atherosclerosis of other arteries; I87.2 Venous insufficiency (chronic) (peripheral); D64.9 Anemia, unspecified; I35.0 Nonrheumatic aortic (valve) stenosis; Z79.01 Long term (current) use of anticoagulants; Z98.890 Other specified postprocedural states; Z95.0 Presence of cardiac pacemaker; Z95.820 Peripheral vascular angioplasty status with implants and grafts; Z95.4 Presence of other heart-valve replacement; Z91.013 Allergy to seafood; Z79.82 Long term (current) use of aspirin; Z79.899 Other long term (current) drug therapy; Z99.81 Dependence on supplemental oxygen; Z95.828 Presence of other vascular implants and grafts; Z28.21 Immunization not carried out because of patient refusal; Z86.79 Personal history of other diseases of the circulatory system; Z68.28 Body mass index [BMI] 28.0-28.9, adult; Z71.6 Tobacco abuse counseling; Z79.811 Long term (current) use of aromatase inhibitors; Z79.891 Long term (current) use of opiate analgesic; Z87.19 Personal history of other diseases of the digestive system
CPT/HCPCS: 36415; 71045; 76705; 80048; 80053; 80069; 83735; 83880; 84100; 84484; 85014; 85018; 85025; 85027; 93005; 93010; 94640; 94664; 94760; 94762; 96374; 99285-25; A9270; C8929; J1940; J3480; J7050; Q9957

== ENCOUNTER 2024-06-23 16:28 | Inpatient (IN) | payer MEDICARE ==
[~2024-06-23] VITALS: Ht 193 cm; Wt 83.8 kg
[~2024-06-23 16:28] MED LIST changes: +ALPR1 PO; +ASPI81CH PO; +BUME2 PO; +ELIQUIS5 M2 PO; +FURO80 PO; +JARDIANCE10 MG PO; +LISI5 PO; +METO25ER PO; +MULVITA PO; +Norco 5-325 Ta1 EACH PO; +POTCHL20ER PO; +PRESERVISION A1 EAC1 PO; +ROSUVASTATIN CA20 MG PO
[2024-06-23 16:58] LABS: BASOPHILS ABSOLUTE AUTO 0.05 K/mm3 (0.00-0.23); BASOPHILS PERCENT AUTO 1 % (0-2); EOSINOPHILS ABSOLUTE AUTO 0.06 K/mm3 (0.00-0.68); EOSINOPHILS PERCENT AUTO 1 % (0-6); Hemoglobin 11.8 g/dL (13.5-17.5); IMMATURE GRAN ABSOLUTE AUTO 0.07 K/mm3 (0.00-0.10); IMMATURE GRAN PERCENT AUTO 1 % (0-1); LYMPHOCYTES ABSOLUTE AUTO 0.71 K/mm3 (0.84-5.20); LYMPHOCYTES PERCENT AUTO 9 % (21-46); MONOCYTES ABSOLUTE AUTO 0.86 K/mm3 (0.16-1.47); MONOCYTES PERCENT AUTO 11 % (4-13); Mean Corpuscular HGB 30.9 pg (26.0-34.0); Mean Corpuscular HGB Conc 33.7 g/dL (31.5-36.5); Mean Corpuscular Volume 92 fL (80-100); Mean Platelet Volume 10.6 fL (9.1-12.4); NEUTROPHILS ABSOLUTE AUTO 6.06 K/mm3 (1.96-9.15); NEUTROPHILS PERCENT AUTO 78 % (41-73); Platelet Count 196 K/mm3 (150-400); RDW Standard Deviation 51.8 fL (35.1-46.3); Red Blood Cell Count 3.82 M/mm3 (4.30-5.90); White Blood Cell Count 7.81 K/mm3 (4.00-11.30)
[2024-06-23] MEDS ORDERED: NS 500 ML IV SCH ×2 (17:00→21:43)
[2024-06-23 17:41] LABS: Albumin, Blood 3.3 g/dL (3.4-5.0); Albumin/Globulin Ratio 0.7 (0.8-1.8); Bun/Creatinine Ratio 35.4 (12.0-20.0); Calcium, Blood 9.2 mg/dL (8.5-10.1); Creatinine, Blood 1.64 mg/dL (0.60-1.20); Globulin, Blood 4.5 g/dL (2.2-4.0); Total Protein, Blood 7.8 g/dL (6.4-8.2)
[2024-06-23 17:44] LABS: Influenza A, PCR NEGATIVE (NEGATIVE); Influenza B, PCR NEGATIVE (NEGATIVE); Resp Syncytial Virus, PCR NEGATIVE (NEGATIVE); SARS-Cov-2 (COVID-19) PCR, MMC NEGATIVE (NEGATIVE)
[2024-06-23 17:51] LABS: Magnesium, Blood 2.5 mg/dL (1.6-2.4); Phosphorus, Blood 3.8 mg/dL (2.5-4.9)
[2024-06-23 18:47] LABS: Source, Urine Clean Catch
[2024-06-23 18:54] LABS: Appearance, Urine Clear (Clear); Bilirubin, Urine Neg (Neg); Blood, Urine Neg (Neg); Color, Urine Yellow (P-Yellow); Glucose Qualitative, Urine 3+ (Neg); Ketones, Urine Neg (Neg); Leukocyte Esterase, Urine Neg (Neg); Nitrite, Urine Neg (Neg); Protein, Urine Neg (Neg); Urobilinogen, Urine NORM (Normal)
[2024-06-23] MEDS ORDERED: NS 250 ML IV SCH (18:55)
[2024-06-23] MEDS ORDERED: Apixaban 5 MG Tab PO SCH (21:44)
[2024-06-23] MEDS ORDERED: Rosuvastatin Calcium 10 MG Tab PO SCH (21:46)
[2024-06-23] MEDS ORDERED: FLU VACC TS2024-25(6MOS UP)/PF 45 MCG/0.5 ML SYRINGE IM ONE (21:50)
[2024-06-23 22:45] VITALS: BP 109/45
[2024-06-23 23:00] VITALS: BP 104/54
[2024-06-23 23:15] VITALS: BP 113/51
--- NOTE | 2024-06-23 23:22 | NUR ---
ARRIVAL TO ICU: RECEIVED REPORT FROM TILA BADILLO AT 2210. PT ARRIVED TO ICU BED 04 FROM ER AT 2223 VIA GURNEY. PT ALERT AND ORIENTED X4, PLEASANT AND COOPERATIVE WITH CARE. SLID ACROSS TO ICU BED WITH ASSIST. PT ON 2L NC WITH SPO2 MID TO HIGH 90'S. DENIES SOB. LUNGS CLEAR/DIM. DIRECTOR OF EXHIBIT DEVELOPMENT IN PLACE, LEVOPHED INFUSING AT 4 MCG/MIN TO MAINTAIN MAP >65. DENIES CP/PRESSURE. PIV TO LFA/RW BOTH INTACT. NS INFUSING AT 75 ML/HR X500ML. ABLE TO STAND AT THE BEDSIDE TO VOID. DENIES DIZZINESS/LIGHTHEADEDNESS. NO BM YET. BED LOW AND LOCKED, CALL LIGHT IN REACH. ALL BELONGINGS BROUGHT WITH PT.
[2024-06-23 23:30] VITALS: BP 116/50
[2024-06-23 23:45] VITALS: BP 122/49
[2024-06-24] VITALS (102 sets, daily range): BP systolic 72–139; BP diastolic 38–102
[2024-06-24 03:37] LABS: BASOPHILS ABSOLUTE AUTO 0.05 K/mm3 (0.00-0.23); BASOPHILS PERCENT AUTO 1 % (0-2); EOSINOPHILS ABSOLUTE AUTO 0.11 K/mm3 (0.00-0.68); EOSINOPHILS PERCENT AUTO 1 % (0-6); Hematocrit 32.2 % (37.0-53.0); Hemoglobin 11.1 g/dL (13.5-17.5); IMMATURE GRAN ABSOLUTE AUTO 0.04 K/mm3 (0.00-0.10); IMMATURE GRAN PERCENT AUTO 1 % (0-1); LYMPHOCYTES ABSOLUTE AUTO 0.69 K/mm3 (0.84-5.20); LYMPHOCYTES PERCENT AUTO 9 % (21-46); MONOCYTES ABSOLUTE AUTO 0.65 K/mm3 (0.16-1.47); MONOCYTES PERCENT AUTO 8 % (4-13); Mean Corpuscular HGB 31.4 pg (26.0-34.0); Mean Corpuscular HGB Conc 34.5 g/dL (31.5-36.5); Mean Corpuscular Volume 91 fL (80-100); Mean Platelet Volume 10.7 fL (9.1-12.4); NEUTROPHILS ABSOLUTE AUTO 6.32 K/mm3 (1.96-9.15); NEUTROPHILS PERCENT AUTO 80 % (41-73); Platelet Count 182 K/mm3 (150-400); RDW Coefficient Variation 16.1 % (11.7-14.2); RDW Standard Deviation 52.1 fL (35.1-46.3); Red Blood Cell Count 3.53 M/mm3 (4.30-5.90); White Blood Cell Count 7.86 K/mm3 (4.00-11.30)
[2024-06-24 04:01] LABS: Albumin, Blood 2.9 g/dL (3.4-5.0); Albumin/Globulin Ratio 0.7 (0.8-1.8); Bilirubin, Total 1.6 mg/dL (0.1-1.0); Bun/Creatinine Ratio 41.2 (12.0-20.0); Creatinine, Blood 1.31 mg/dL (0.60-1.20); Globulin, Blood 4.1 g/dL (2.2-4.0)
--- NOTE | 2024-06-24 05:29 | NUR ---
SHIFT SUMMARY: PT REMAINS ALERT AND ORIENTED T/O THE SHIFT. PLEASANT AND COOPERATIVE WITH CARE. LEVOPHED AT 3 MCG/MIN FOR MAP >65. CARTON MARKER MACHINE IN PLACE, PACED WIH HR 70'S. DENIES CP/PRESSURE. PT ON 2L NC WITH SPO2 MID TO HIGH 90'S. DENIES SOB. VOIDING INTO URINAL INDEPENDENTLY. TOLERATING PO INTAKE. DENIES DIZZINESS/LIGHTHEADEDNESS. NO BM THIS SHIFT. UPDATED PT'S TO PT CONDITION. NO CONCERNS THIS AM FROM PT. PIV TO LAC/RW BOTH PATENT. BED LOW AND LOCKED, CALL LIGHT IN REACH.
--- NOTE | 2024-06-24 08:00 | NUR ---
[place] of care: Patient with complaints of mild generalized pain -- assisted to chair with extra pillows for comfort -- he reports pain resolved with this repositioning. Neurologically intact, oxygen saturations in high 90s on 2L NC, breathing even/unlabored. He is V paced & has MAP of 65 on 4 mcgs of norepi. Educated on plan of care for the day & he verbalized understanding. Call fitzgerald in reach.
[2024-06-24] MEDS ORDERED: Aspirin 81 MG Chew PO SCH (09:00)
[2024-06-24] MEDS ORDERED: Bisacodyl 5 MG TabEC PO PRN (14:55)
[2024-06-24] MEDS ORDERED: ALPRAZolam 0.5 MG Tab PO PRN (14:55)
--- NOTE | 2024-06-24 16:21 | NUR ---
DISCUSSED CASE WITH PROVIDER. EXTENSIVE CARDIAC HISTORY, LAST TIME PATIENT WAS HERE CARDIOLOGY RECOMENDED MEDICAL MANAGMENT. WILL DISCUSS WITH PALLIATIVE CARE TEAM. GOALS OF CARE AND CODE STATUS SHOULD BE DISCUSSED.
--- NOTE | 2024-06-24 17:36 | NUR ---
Shift summary: Patient has been OOB to chair for most of the shift & also ambulated with cane & stand-by assist down the ICU hyman & back. He does have some mild dyspnea/tachypnea on exertion & requested that oxygen be increased to 3L NC & he remains on that now with oxygen saturations in the mid-high 90s. Attempted to titrate the levophed gtt per MD request but MAP dropped to 52 so currently he is on 3 mcgs/min (max of 6 mcgs/min today). HR has remained V paced at 70 but he did have a 6 beat run of VT (asymptomatic) which has been saved in the chart. Voiding frequently & eating well. PIV with levo infusing is WNL with good blood return. Will continue to titrate for MAP of 65.
--- NOTE | 2024-06-24 20:38 | NUR ---
ASSUMPTION OF CARE ASSUMED CARE OF PATIENT AT 1900, BEDSIDE SHIFT REPORT RECEIVED FROM WAN RN. PT RESTING IN BED, ALERT AND ORIENTED X4. PT ANSWERS QUESTIONS APPROPRIATELY, FOLLOWS DIRECTION WHEN PROMPTED AND IS ABLE TO MAKE HIS NEEDS KNOWN. PT MOVES EXTREMITIES EQUALLY BILATERALLY, DENIES PAIN. HR 70'S SINUS, LEVOPHED INFUSING AT 3MCG/MIN TO MAINTAIN MAP >65, PT DENIES CP/PRESSURE. PT ON 2LPM VIA NC, OXYGEN SATURATION >95%, PT TACHYPNEIC AT TIMES. ABDOMEN SOFT, BOWEL TONES ACTIVE THROUGHOUT. PT USES URINAL TO VOID. PIV IN PLACE TO LAC SL. PIV IN PLACE TO RIGHT WRIST WITH GOOD BLOOD RETURN, INFUSING LEVOPHED. BED IN LOWEST POSITION, CALL LIGHT WITHIN REACH, CARE CONTINUES.
[2024-06-24] MEDS ORDERED: Misc. Tablet PO SCH (21:00)
[2024-06-25] VITALS (86 sets, daily range): BP systolic 71–139; BP diastolic 36–97
[2024-06-25 04:14] LABS: BASOPHILS ABSOLUTE AUTO 0.03 K/mm3 (0.00-0.23); BASOPHILS PERCENT AUTO 0 % (0-2); EOSINOPHILS ABSOLUTE AUTO 0.08 K/mm3 (0.00-0.68); EOSINOPHILS PERCENT AUTO 1 % (0-6); Hemoglobin 10.7 g/dL (13.5-17.5); IMMATURE GRAN ABSOLUTE AUTO 0.05 K/mm3 (0.00-0.10); IMMATURE GRAN PERCENT AUTO 1 % (0-1); LYMPHOCYTES ABSOLUTE AUTO 0.77 K/mm3 (0.84-5.20); LYMPHOCYTES PERCENT AUTO 11 % (21-46); MONOCYTES ABSOLUTE AUTO 0.58 K/mm3 (0.16-1.47); MONOCYTES PERCENT AUTO 8 % (4-13); Mean Corpuscular HGB 31.2 pg (26.0-34.0); Mean Corpuscular HGB Conc 34.5 g/dL (31.5-36.5); Mean Corpuscular Volume 90 fL (80-100); Mean Platelet Volume 10.7 fL (9.1-12.4); NEUTROPHILS ABSOLUTE AUTO 5.85 K/mm3 (1.96-9.15); NEUTROPHILS PERCENT AUTO 79 % (41-73); Platelet Count 153 K/mm3 (150-400); RDW Coefficient Variation 16.1 % (11.7-14.2); RDW Standard Deviation 51.8 fL (35.1-46.3); Red Blood Cell Count 3.43 M/mm3 (4.30-5.90); White Blood Cell Count 7.36 K/mm3 (4.00-11.30)
[2024-06-25 04:36] LABS: Bun/Creatinine Ratio 34.7 (12.0-20.0); Calcium, Blood 9.1 mg/dL (8.5-10.1); Creatinine, Blood 0.98 mg/dL (0.60-1.20)
--- NOTE | 2024-06-25 05:35 | NUR ---
SHIFT SUMMARY PT UP IN BEDSIDE RECLINER. PT REMAINS ALERT AND ORIENTED X4, ANSWERS QUESTIONS APPROPRIATELY, FOLLOWS DIRECTION WHEN PROMPTED AND IS ABLE TO MAKE HIS NEEDS KNOWN. PT AMBULATES IN THE ROOM WITH CANE AND ASSISTANCE WITH CORD MANAGEMENT. HR 70'S PACED, LEVOPHED INFUSING AT 2MCG/KG/MIN TO MAINTAIN MAP >65 SEE FLOWSHEET FOR TITRATIONS, PT DENIES CP/PRESSURE. PT ON 2LPM VIA NC, OXYGEN SATURATION >95%. ABDOMEN SOFT, BOWEL TONES ACTIVE THROUGHOUT. PT DENIES N/V. PT USES URINAL TO VOID. PIV IN PLACE TO RIGHT WRIST, LAC AND LEFT FOREARM. CALL LIGHT WITHIN REACH, CARE CONTINUES.
[2024-06-25] MEDS ORDERED: Psyllium 1 EA Pack PO SCH (09:00)
[2024-06-25] MEDS ORDERED: Multivitamins 1 Tab PO SCH (09:00)
[2024-06-25] MEDS ORDERED: Famotidine 20 MG Tab PO SCH (09:00)
--- NOTE | 2024-06-25 09:53 | NUR ---
[place] of Care: Care assumed at 0700hr. Patient alert and oriented x4, sitting upright in recliner. Denies pain, discomfort, SOB or dyspnea. VSS, SpO2 98-100% on 2L/NC (baseline). MAP's 65-70 throughout morning, levophed gtt at 2mcg/min at shift change then placed on stand-by at approx 0800 (see flow sheet). Peripheral IV's x3 patent and intact. Positive blood cx results received this morning and discussed with Dr. Muller at bedside, new Abx orders pending. Stand-by assist to ambulate throughout room without difficulty. Call light in reach. Makes needs known. Will continue to monitor.
[2024-06-25] MEDS ORDERED: CefTRIAXone Sodium 1,000 MG in NS 100 ML IV SCH (10:30)
[2024-06-25] MEDS ORDERED: Vancomycin HCL 1,750 MG in NS 500 ML IV SCH (11:00)
[2024-06-25] MEDS ORDERED: CefTRIAXone Sodium 2,000 MG in NS 100 ML IV SCH (11:30)
--- NOTE | 2024-06-25 18:32 | NUR ---
Shift Summary: No significant changes throughout shift. Levophed gtt remains off throughout shift, BP continues to improve. Remains calm and cooperative with staff, makes needs known. Tolerating PO food and fluids without difficulty. Peripheral IV's x3 remain patent and intact. Voiding and BM's in urinal/toilet without difficulty. Will continue to monitor until report to NOC shift RN.
[2024-06-25] MEDS ORDERED: PRESERVISION PO SCH (21:00)
--- NOTE | 2024-06-25 21:26 | NUR ---
ASSUMED CARE ASSUMED CARE AT APPROXIMATELY 1905. PT RESTING COMFORTABLY IN BED W/O ANY COMPLAINTS OF PAIN OR SOB. BP STABLE 110S/40'S WITH PT BEING CONTINUOUSLY V PACED. WILL CONTINUE PLAN OF CARE.
[2024-06-25] MEDS ORDERED: Vancomycin HCL 1,000 MG in NS 250 ML IV SCH (23:00)
[2024-06-26] VITALS (14 sets, daily range): BP systolic 104–125; BP diastolic 41–62
[2024-06-26 01:11] LABS: Source, Urine Clean Catch
[2024-06-26 01:13] LABS: Bilirubin, Urine Neg (Neg); Blood, Urine 1+ (Neg); Glucose Qualitative, Urine 4+ (Neg); Ketones, Urine Neg (Neg); Leukocyte Esterase, Urine Neg (Neg); Nitrite, Urine Neg (Neg); Protein, Urine 2+ (Neg); Specific Gravity, Urine 1.015 (1.003-1.022); Urobilinogen, Urine NORM (Normal)
[2024-06-26 01:43] LABS: Appearance, Urine Clear (Clear); Color, Urine Yellow (P-Yellow)
[2024-06-26 01:45] LABS: Red Blood Cells, Urine 0-2 /hpf (0-2); White Blood Cells, Urine 0-2 /hpf (0-5)
[2024-06-26 01:46] LABS: Amorphous Light (0-Heavy); Bacteria Not Seen /hpf; Squamous Epithelial Cells Rare /hpf (Few)
[2024-06-26 03:29] LABS: BASOPHILS ABSOLUTE AUTO 0.03 K/mm3 (0.00-0.23); BASOPHILS PERCENT AUTO 0 % (0-2); EOSINOPHILS ABSOLUTE AUTO 0.09 K/mm3 (0.00-0.68); EOSINOPHILS PERCENT AUTO 1 % (0-6); Hematocrit 29.8 % (37.0-53.0); Hemoglobin 10.4 g/dL (13.5-17.5); IMMATURE GRAN ABSOLUTE AUTO 0.03 K/mm3 (0.00-0.10); IMMATURE GRAN PERCENT AUTO 0 % (0-1); LYMPHOCYTES PERCENT AUTO 11 % (21-46); MONOCYTES ABSOLUTE AUTO 0.61 K/mm3 (0.16-1.47); MONOCYTES PERCENT AUTO 9 % (4-13); Mean Corpuscular HGB 31.7 pg (26.0-34.0); Mean Corpuscular HGB Conc 34.9 g/dL (31.5-36.5); Mean Corpuscular Volume 91 fL (80-100); Mean Platelet Volume 10.8 fL (9.1-12.4); NEUTROPHILS ABSOLUTE AUTO 5.63 K/mm3 (1.96-9.15); NEUTROPHILS PERCENT AUTO 78 % (41-73); Platelet Count 140 K/mm3 (150-400); RDW Coefficient Variation 16.3 % (11.7-14.2); RDW Standard Deviation 52.1 fL (35.1-46.3); Red Blood Cell Count 3.28 M/mm3 (4.30-5.90); White Blood Cell Count 7.19 K/mm3 (4.00-11.30)
[2024-06-26 03:55] LABS: Albumin, Blood 2.8 g/dL (3.4-5.0); Albumin/Globulin Ratio 0.7 (0.8-1.8); Bilirubin, Total 1.9 mg/dL (0.1-1.0); Bun/Creatinine Ratio 29.1 (12.0-20.0); Calcium, Blood 8.9 mg/dL (8.5-10.1); Creatinine, Blood 0.93 mg/dL (0.60-1.20); Globulin, Blood 4.1 g/dL (2.2-4.0); Potassium, Blood 4.2 mmol/L (3.5-5.5); Total Protein, Blood 6.9 g/dL (6.4-8.2)
--- NOTE | 2024-06-26 05:18 | NUR ---
SHIFT SUMMARY PT BP REMAINED ABOVE MAP 60 AND SYS GREATER THAN 90 THROUGHOUT THE NIGHT. PT HR 70S ON RA-3L NC. PT DENIES ANY PAIN. WILL CONTINUE PLAN OF CARE.
--- NOTE | 2024-06-26 07:15 | NUR ---
ASSUMPTION OF CARE: ASSUMED CARE OF PATIENT. PATIENT RESTING IN BED. PATIENT DENIES PAIN OR DISCOMFORT. BLOOD PRESSURES STABLE WITH MAPX >65 AND SBP IN THE LOW 120S. PATIENT ON 2L VIA NC AT THIS TIME. PATIENT DENIES SHORTNESS OF BREATH. SPO2 >94%. PATIENT DENIES DIFFICULTY VOIDING. PATIENT DENIES DIFFICULTY WITH BOWEL MOVEMENTS. PATIENT SITTING AT BEDSIDE. PATIENT DENIES NEEDS AT THIS TIME.
[2024-06-26] MEDS ORDERED: Empagliflozin 10 MG TAB PO SCH (09:00)
[2024-06-26] MEDS ORDERED: GuaiFENesin 600 MG TabCR PO PRN (11:30)
[2024-06-26] MEDS ORDERED: HYDR1TAB94 PO (12:13)
[2024-06-26] MEDS ORDERED: HYDROcodone 5-APAP 325 TAB PO PRN (12:25)
[2024-06-26] MEDS ORDERED: Fluticasone 0.05% Nasal Spray SCH (13:00)
--- NOTE | 2024-06-26 18:01 | NUR ---
SHIFT SUMMARY: NEURO: PATIENT ABLE TO MAKE NEEDS KNOWN. PATIENT UP TO THE CHAIR TWICE TODAY. PATIENT AMBULATED WITH THE RN TODAY. PATIENT WALKS SLOWLY AND REQUIRED A BREAK IN THE MIDDLE OF HIS WALK (TO THE WEST SIDE OF THE ICU). PATIENT REPORTED THAT HE WAS MUCH "WEAKER THAN HE THOUGHT". AT THE END OF THE WALK, PATIENT REPORTED SHARP PAIN IN HIS LEFT ANKLE THAT RADIATED TO BELOW HIS CALF. MASSAGE, REST, ELEVATION AND PRN PAIN MEDICATIONS TOOK THE PAIN AWAY. CARDIAC: LEVOPHED REMAINED ON STANDBY THROUGHOUT THE SHIFT. MAPS >65. SBP IN THE 100-120S. PATIENT REMAINED VENTRICULAR PACED AT 70. PATIENT DENIED DIZZINESS WITH STANDING. RESPIRATORY: PATIENT REMAINED ON 2-4L O2 VIA NC FOR THE SHIFT. PATIENT REPORTED FEELING "TIGHT" AND THAT AT HOME HE TAKES MUCINEX. MUCINEX AND FLONASE ORDERED AND ADMINISTRED. PATIENT REPORTED SOME RELIEF. ALSO PROVIDED WITH INCENTIVE SPIROMETER. PATIENT USED IN THE ROOM. SPO2 >96% ON O2. GI/: PATIENT ABLE TO EAT AND DRINK INDEPENDENTLY. PATIENT HAS A MODERATE APPETITE - FINISHING AT LEAST 50% OF HIS MEALS. PATIENT ABLE TO VOID WITHOUT DIFFICULTY. URINE IS A DARK YELLOW. NOW BOWEL MOVEMENT ON THIS SHIFT. PSYCHSOCIAL: PATIENT ABLE TO MAKE NEEDS KNOWN. PATIENT FOLLOWING DIRECTIONS. AT THE END OF SHIFT, PATIENT EXPRESSED FRUSTRATION OVER LINES AND CORDS. OBTAINED TELE BOX FROM PCU TO FACILITATE MOBILITY.
--- NOTE | 2024-06-26 20:51 | NUR ---
ASSUMPTION OF CARE: ASSUMED CARE OF PT AT 1915 FROM NATALIA BADILLO. PT ALERT AND ORIENTED X4. FOLLOWS DIRECTION AND MAKES NEEDS KNOWN. PT CURRENTLY PCU STATUS. ON 4L NC WITH SPO2 MID TO HIGH 90'S, DENIES SOB. HAS NONPRODUCTIVE COUGH. LUNGS CLEAR/DIM. MANAGER INSIDE IN PLACE, PACED WITH HR 70'S. SBP 100'S WITH MAP >65. DENIES CP/PRESSURE. VOIDING INTO URINAL DARK URINE. TOLERATING PO INTAKE WELL. PT HAS C/O SHARP PAIN IN HIS LEFT FOOT, MEDICATED PER EMAR WITH PRN PAIN MEDICATION. PIVS INTACT AND SALINE LOCKED. BED LOW AND LOCKED, CALL LIGHT IN REACH.
[2024-06-26] MEDS ORDERED: Lactobacil 2-S.Thermo-Bifido 1 1 Cap PO SCH (21:00)
[2024-06-27] VITALS (8 sets, daily range): BP systolic 111–128; BP diastolic 38–60
[2024-06-27 04:01] LABS: BASOPHILS ABSOLUTE AUTO 0.05 K/mm3 (0.00-0.23); BASOPHILS PERCENT AUTO 1 % (0-2); EOSINOPHILS ABSOLUTE AUTO 0.17 K/mm3 (0.00-0.68); EOSINOPHILS PERCENT AUTO 3 % (0-6); Hematocrit 30.1 % (37.0-53.0); Hemoglobin 10.3 g/dL (13.5-17.5); IMMATURE GRAN ABSOLUTE AUTO 0.03 K/mm3 (0.00-0.10); IMMATURE GRAN PERCENT AUTO 1 % (0-1); LYMPHOCYTES ABSOLUTE AUTO 0.86 K/mm3 (0.84-5.20); LYMPHOCYTES PERCENT AUTO 13 % (21-46); MONOCYTES ABSOLUTE AUTO 0.57 K/mm3 (0.16-1.47); MONOCYTES PERCENT AUTO 9 % (4-13); Mean Corpuscular HGB Conc 34.2 g/dL (31.5-36.5); Mean Corpuscular Volume 94 fL (80-100); Mean Platelet Volume 11.1 fL (9.1-12.4); NEUTROPHILS ABSOLUTE AUTO 4.96 K/mm3 (1.96-9.15); NEUTROPHILS PERCENT AUTO 75 % (41-73); Platelet Count 125 K/mm3 (150-400); RDW Coefficient Variation 16.5 % (11.7-14.2); RDW Standard Deviation 54.2 fL (35.1-46.3); Red Blood Cell Count 3.22 M/mm3 (4.30-5.90); White Blood Cell Count 6.64 K/mm3 (4.00-11.30)
[2024-06-27 04:20] LABS: Albumin, Blood 2.8 g/dL (3.4-5.0); Albumin/Globulin Ratio 0.7 (0.8-1.8); Bilirubin, Total 1.9 mg/dL (0.1-1.0); Bun/Creatinine Ratio 28.2 (12.0-20.0); Calcium, Blood 8.8 mg/dL (8.5-10.1); Creatinine, Blood 0.82 mg/dL (0.60-1.20); Globulin, Blood 4.1 g/dL (2.2-4.0); Potassium, Blood 4.1 mmol/L (3.5-5.5); Total Protein, Blood 6.9 g/dL (6.4-8.2)
--- NOTE | 2024-06-27 05:40 | NUR ---
SHIFT SUMMARY: NO ACUTE CHANGES THIS SHIFT. PT ABLE TO REST OFF AND ON T/O THE NIGHT. A&O X4, MAKES NEEDS KNOWN. REMAINS ON 4L NC WITH SPO2 HIGH 90'S. NON-PRODUCTIVE COUGH. REMAINS PACED WITH HR 70'S. SBP 100'S. DENIES CP/PRESSURE. PIVS INTACT AND SALINE LOCKED. USING URINAL INDEPENDENTLY. NO BM THIS SHIFT. TOLERATING PO INTAKE WELL. BED LOW AND LOCKED, CALL LIGHT IN REACH.
--- NOTE | 2024-06-27 07:36 | NUR ---
[place] of care Patient resting in bed. He is drowzy this am. Received xanax last night. Patient vs stable currently, afebrile. Pt voided orange santiago urine 100ml into urinal. Pt has 2 piv's to left arm saline locked. Patient has on his glasses and dentures. Dr's doing their rounding. No acute pains currently.
[2024-06-27] MEDS ORDERED: Fluticasone 0.05% Nasal Spray SCH (09:00)
[2024-06-27] MEDS ORDERED: Metoprolol Succinate 25 MG TABCR PO SCH (09:00)
[2024-06-27 11:18] LABS: Vancomycin, Trough 22.3 ug/mL (5.0-10.0)
[2024-06-27] MEDS ORDERED: Piperacillin/Tazobactam Sod 3.375 GM in NS 100 ML IV ONE (13:10)
--- NOTE | 2024-06-27 17:04 | NUR ---
UPDATE SPOKE WITH DR TAVARES ABOUT RESULTS FROM ULTRASOUND OF PT'S LEGS. NEW ORDERS NOW COMING IN TO START HEPARIN AND DC ELIQUIS. ALSO CTA OF ABD TO BE DONE THIS EVENING . PT UPDATED BY DR Juan AMEZCUA. IR ALSO BEING CONSULTED. DR TAVARES SPOKE WITH DR RIOJAS.
[2024-06-27 17:25] LABS: International Normalized Ratio 1.17; Prothrombin Time Results 12.4 Sec (9.7-11.5)
[2024-06-27] MEDS ORDERED: Dose Adjust by Pharmacy XX STA (17:31)
[2024-06-27] MEDS ORDERED: Heparin Sodium,Porcine/0.5 NS 500 ML IV SCH ×2 (17:35→21:40)
[2024-06-27] MEDS ORDERED: Piperacillin/Tazobactam Sod 3.375 GM in NS 100 ML IV SCH (18:00)
--- NOTE | 2024-06-27 18:35 | NUR ---
END OF SHIFT NOTE PT HAS HAD AN EVENTFUL DAY. HE WAS STATING HIS LEFT LEG HURT THIS MORNING AND WHEN UP OUT OF BED THE LEFT LEG WAS TURNING PURPLE AND COLD. UNABLE TO PALPATE PULSES ON THAT FOOD EITHER. DR HSIEH ALSO SAW THE FOOT AND ORDERED AN ULTRASOUND OF HIS LE BILAT. THIS EVENING HE IS NOW ON HEPARIN GTT GOING AT 18 UNITS/KG/HR D/T THE LOW TO NO FLOW OF LEFT LEG VESSELS. PT HAS GONE TO CT FOR A CTA AND DR RIOJAS THE IR DR IS LOOKING AT THE SCAN. PT IS CURRENLTY NPO AWAITNG TO GO TO THE RV [facility]. SPOUSE HAS BEEN UPDATED ON PLAN OF CARE VIA TELEPHONE CALL JESSI MORALES AND THIS RN. PT HAS ALSO HAD A CHANGE IN ANTIBIOTICS TODAY D/T RESULTS FROM BLOOD CULTURES. ECHO WAS ALSO DONE TODAY. NO NEW NEW ON THAT FRONT. PT REMAINS 1OO% PACED RATE 70'S VENTRICULAR PACED. BP STABLE EVEN AFTER RESTARTING HIS METOPROLOL TODAY SEE VS.
[2024-06-27] MEDS ORDERED: NS 250 ML IV ONE (18:39)
[2024-06-27] MEDS ORDERED: NS 100 ML IV ONE (18:39)
[2024-06-27] MEDS ORDERED: NS 1,000 ML IV ONE (18:40)
[2024-06-27] MEDS ORDERED: Heparin Sodium 1000 Units/ML 10ML MDV ONE (18:40)
[2024-06-27] MEDS ORDERED: NS 0 ML IV ONE (18:44)
[2024-06-27] MEDS ORDERED: NS 500 ML IV ONE (19:25)
[2024-06-27] MEDS ORDERED: FentaNYL Citrate 50 MCG/ML 2 ML Injection ONE (20:27)
[2024-06-27] MEDS ORDERED: Midazolam HCl 1MG / ML 2ML Vial ONE (20:27)
[2024-06-27] MEDS ORDERED: Vancomycin HCL 750 MG in NS 250 ML IV SCH (21:00)
--- NOTE | 2024-06-27 21:19 | NUR ---
VERBAL REPORT GIVEN TO ICU 04 RN. 6FR INFUSION SHEATH IN PLACE IN RIGHT GROIN. VSS ON 4 LO2.
[2024-06-27] MEDS ORDERED: Midazolam HCl 1MG / ML 2ML Vial IV PRN (21:25)
[2024-06-27] MEDS ORDERED: Melatonin 3 MG Tab PO PRN (21:25)
[2024-06-27] MEDS ORDERED: Prochlorperazine Edisylate 10 mg Vial IV PRN (21:30)
[2024-06-27] MEDS ORDERED: Ondansetron HCl 2 MG / ML 2ML Vial IV PRN (21:30)
[2024-06-27] MEDS ORDERED: Ondansetron 4 MG TAB PO PRN (21:30)
[2024-06-27] MEDS ORDERED: Prochlorperazine Maleate 5 MG Tab PO PRN (21:30)
[2024-06-27] MEDS ORDERED: Alteplase 1 MG/ML 25 MG in NS 250 ML IV SCH ×2 (21:35→21:50)
[2024-06-27] MEDS ORDERED: FentaNYL Citrate 50 MCG/ML 2 ML Injection IV PRN (22:05)
[2024-06-27] MEDS ORDERED: HYDROcodone 5-APAP 325 TAB PO PRN (22:05)
--- NOTE | 2024-06-27 22:33 | NUR ---
RETURN FROM [facility] PT RETURNED FROM [facility] TO ICU AT 2109. PT ALERT AND ORIENTED, ALTHOUGH DROWSY UPON ARRIVAL. MUCH MORE AWAKE NOW. ANSWERS QUESTIONS AND FOLLOWS DIRECTION. PT CURRENTLY FLAT LYING R/T SHEATH IN LEFT GROIN. GROIN SHEATH HAS TPA INFUSING AT 1 MG/HR AND HEPARIN AT 3.5 UNITS/KG/HR. GROIN SITE HAS MINIMAL OOZING BUT OTHERWISE IS SOFT TO TOUCH, AND NON-TENDER. PT HAS NO SENSATION IN LEFT FOOT/LEG, DR. RIOJAS AWARE. ABSENT PULSES IN LEFT FOOT WELL/ COOL TO TOUCH. RIGHT FOOT HAS FAINT PULSES WITH GOOD SENSATION. PUPILS EQUAL AND REACTIVE. PT ON 6L NC/OXYMASK WITH SPO2 MID TO HIGH 90'S. DENIES SOB. 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 SBP 100'S WITH MAP >65. DENIES CP/PRESSURE. PIVS INTACT AND SALINE LOCKED. CONDOM CATH PLACED, VOIDING DARK URINE. NO BM YET. PT ENDORSES PAIN IN LEFT LEG, MEDICATED PER EMAR. PT UPDATED TO PT CONDITION. AWAITING TRANSFER TO HIGHER LEVEL OF CARE. BED LOW AND LOCKED, CALL LIGHT IN REACH.
[2024-06-28] VITALS (54 sets, daily range): BP systolic 105–141; BP diastolic 42–69
[2024-06-28] MEDS ORDERED: HYDROmorphone HCl/Pf 1MG SYR IV PRN ×2 (01:15→09:25)
[2024-06-28 03:49] LABS: BASOPHILS ABSOLUTE AUTO 0.04 K/mm3 (0.00-0.23); BASOPHILS PERCENT AUTO 1 % (0-2); EOSINOPHILS ABSOLUTE AUTO 0.08 K/mm3 (0.00-0.68); EOSINOPHILS PERCENT AUTO 1 % (0-6); Hematocrit 31.6 % (37.0-53.0); Hemoglobin 10.7 g/dL (13.5-17.5); IMMATURE GRAN ABSOLUTE AUTO 0.04 K/mm3 (0.00-0.10); IMMATURE GRAN PERCENT AUTO 1 % (0-1); LYMPHOCYTES ABSOLUTE AUTO 1.01 K/mm3 (0.84-5.20); LYMPHOCYTES PERCENT AUTO 13 % (21-46); MONOCYTES ABSOLUTE AUTO 0.58 K/mm3 (0.16-1.47); MONOCYTES PERCENT AUTO 8 % (4-13); Mean Corpuscular HGB 31.8 pg (26.0-34.0); Mean Corpuscular HGB Conc 33.9 g/dL (31.5-36.5); Mean Corpuscular Volume 94 fL (80-100); Mean Platelet Volume 10.7 fL (9.1-12.4); NEUTROPHILS ABSOLUTE AUTO 5.91 K/mm3 (1.96-9.15); NEUTROPHILS PERCENT AUTO 77 % (41-73); Platelet Count 133 K/mm3 (150-400); RDW Coefficient Variation 17.2 % (11.7-14.2); RDW Standard Deviation 55.5 fL (35.1-46.3); Red Blood Cell Count 3.37 M/mm3 (4.30-5.90); White Blood Cell Count 7.66 K/mm3 (4.00-11.30)
[2024-06-28 04:05] LABS: Bun/Creatinine Ratio 23.3 (12.0-20.0); Calcium, Blood 8.7 mg/dL (8.5-10.1); Creatinine, Blood 0.94 mg/dL (0.60-1.20); Potassium, Blood 4.1 mmol/L (3.5-5.5)
--- NOTE | 2024-06-28 05:13 | NUR ---
SHIFT SUMMARY: PT ALERT AND ORIENTED. COOPERATIVE WITH CARE, FOLLOWING DIRECTION. SHEATH TO LEFT GROIN HAS MINIMAL OOZING, NO OBVIOUS SIGNS OF BLEEDING OR HEMATOMA NOTED. TENDER AROUND INSERTION SITE. LEFT LEG CONTINUES TO HAVE PAIN, MEDICATED WITH PRN PAIN MEDS. PULSES IN LEFT FOOT ABSENT, LEG COOL TO THE TOUCH. TPA REMAINS AT 1 MG/HR, HEPARIN AT 3.5 UNITS/KG/HR. REMAINS VENTRICULAR PACED IN THE 70'S, SBP 100'S. DENIES CP/PRESSURE. ON 6L NC WITH SPO2 MID 90'S. DENIES SOB. REMAINS FLAT LYING T/O THE SHIFT. PIVS INTACT. TOLERATING SIPS OF WATER. CONDOM CATH IN PLACE, DRAINING YELLOW URINE TO GRAVITY. PT'S AT THE BEDSIDE, UPDATED TO PLAN OF CARE. NO FURTHER PLAN TO MOVE PT TO HIGHER LEVEL OF CARE. BED LOW AND LOCKED, CALL LIGHT IN REACH.
[2024-06-28] MEDS ORDERED: NS 1,000 ML IV ONE (11:47)
[2024-06-28] MEDS ORDERED: Heparin Sodium 1000 Units/ML 10ML MDV ONE (11:47)
[2024-06-28] MEDS ORDERED: Nitroglycerin 2 MG/20 ML BTL ONE ×2 (11:48→12:47)
[2024-06-28] MEDS ORDERED: NS 500 ML IV ONE (11:54)
[2024-06-28] MEDS ORDERED: FentaNYL Citrate 50 MCG/ML 2 ML Injection ONE (11:54)
[2024-06-28] MEDS ORDERED: Midazolam HCl 1MG / ML 2ML Vial ONE (11:54)
[2024-06-28] MEDS ORDERED: Verapamil HCL 2.5 MG/ML 2ML Injection ONE (12:45)
[2024-06-28] MEDS ORDERED: Heparin Sodium 5000 Units/ML 1ML MDV IV ONE (14:45)
[2024-06-28] MEDS ORDERED: Heparin Sodium,Porcine/0.5 NS 500 ML IV SCH (15:05)
--- NOTE | 2024-06-28 17:11 | NUR ---
ROUNDED ON PATIENT, PENDING TRASPORTATION TO HIGHTER LEVEL OF CARE. BEDSIDE RN RELAYED IT WAS NOT AN APPROPRIATE TIME TO ROUDN.
--- NOTE | 2024-06-28 17:59 | NUR ---
SHIFT SUMMARY: Pt has exhibited some improvement through shift to his lower left leg and foot. At the start of shift his foot was cold, cyanotic, without capillary refill. By the end of the shift he color is still dusky on the foot, cyanotic toes, but the temperature has improved and he has a more brisk capillary refill. He has retractable pain in the left leg. He has been alert and oriented throughout shift and has been on oxygen. 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 He required a transition from the nasal cannula to the oxy-mask and was increased to 8lpm. He denied chaest pain or nausea. He stated he was just fatigued with leg pain. After pain medication patient exhibited some confusion, but was still easy to reorient. He has been in a ventricular paced rhythm in the 70s for most of the time. He has been normotensive with a MAP >65. He has a condom catheter in place with low, but mostly adequate urine output.
== END 2024-06-28 19:04 | disposition short-term general hospital (02) | DRG 281 ==
LOC: ER 16:28 → ICUE 16:29
PROVIDERS: Emergency Medicine; Family Medicine; Student in an Organized Health Care Education/Training Program; ADMIT Internal Medicine
PROC: 3E033XZ Introduction of Vasopressor into Peripheral Vein, Percutaneous Approach (ICD-10-PCS; 2024-06-23)
PROC: B41D1ZZ Fluoroscopy of Aorta and Bilateral Lower Extremity Arteries using Low Osmolar Contrast (ICD-10-PCS; principal; 2024-06-28)
DX: I95.2 Hypotension due to drugs (principal); E87.1 Hypo-osmolality and hyponatremia; I21.A1 Myocardial infarction type 2; I50.22 Chronic systolic (congestive) heart failure; N17.9 Acute kidney failure, unspecified; I42.0 Dilated cardiomyopathy; R78.81 Bacteremia; I25.10 Atherosclerotic heart disease of native coronary artery without angina pectoris; Z99.81 Dependence on supplemental oxygen; I48.91 Unspecified atrial fibrillation; I25.5 Ischemic cardiomyopathy; B96.89 Other specified bacterial agents as the cause of diseases classified elsewhere; Z95.0 Presence of cardiac pacemaker; Z95.2 Presence of prosthetic heart valve; I11.0 Hypertensive heart disease with heart failure; E78.5 Hyperlipidemia, unspecified; J44.9 Chronic obstructive pulmonary disease, unspecified; K74.60 Unspecified cirrhosis of liver; Z98.890 Other specified postprocedural states; Z79.82 Long term (current) use of aspirin; Z79.899 Other long term (current) drug therapy; Z79.01 Long term (current) use of anticoagulants
CPT/HCPCS: 0241U; 36415; 71045; 71275; 75635; 76937; 80048; 80053; 80202; 81001; 81003; 83605; 83735; 83880; 84100; 84145; 84484; 85025; 85347; 85379; 85384; 85610; 85730; 87040; 87077; 87186; 93005; 93010; 93925; 94664; 94760; 96361; 96365-59; 96366; 96376; 99152; 99153; 99285-25; A9270; C1757; C1760; C1769; C1887; C1894; C8929; G0378; J0696; J1171; J1644; J2250; J2543; J2997; J3010; J3370; J7030; J7040; J7050; J7060; Q9957; Q9967